=== PATIENT | female | born 1970 | race American Indian/Alaskan Native ===

== ENCOUNTER 2016-10-01 10:17 | Emergency (ER) | payer MEDICAID, OTHER ==
[2016-10-01 10:38] VITALS: BP 129/95
[2016-10-01] MEDS ORDERED: TORADOL IM ONE (13:15)
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
== END 2016-10-01 13:41 | disposition home or self-care (01) ==
LOC: ED 10:17
DX: M51.26 Other intervertebral disc displacement, lumbar region (principal); G89.29 Other chronic pain; F32.9 Major depressive disorder, single episode, unspecified; I10 Essential (primary) hypertension; F17.200 Nicotine dependence, unspecified, uncomplicated; Z96.643 Presence of artificial hip joint, bilateral; Z90.89 Acquired absence of other organs; Z86.2 Personal history of diseases of the blood and blood-forming organs and certain disorders involving the immune mechanism; V89.2XXA Person injured in unspecified motor-vehicle accident, traffic, initial encounter; Y93.89 Activity, other specified; Y99.8 Other external cause status; Y92.410 Unspecified street and highway as the place of occurrence of the external cause
CPT/HCPCS: 96372; 99282; J1885

== ENCOUNTER 2017-07-03 11:22 | Emergency (ER) | payer SELFPAY ==
[2017-07-03] MEDS ORDERED: NACL 0.9% 1000 ML 1,000 ML IV ONE (11:44)
[2017-07-03] MEDS ORDERED: KEPPRA 1,000 MG/NS 0.75% 100ML 1,000 MG/100 ML BAG IV ONE ×2 (11:44→11:46)
--- NOTE | 2017-07-03 12:44 | XRay Report ---
AP CHEST: HISTORY: Difficulty in breathing AP view of the chest demonstrates a normal mediastinal and cardiac contour with clear lungs and normal bony and soft tissue structures. IMPRESSION: Unremarkable AP chest.
[2017-07-03 12:47] LABS: Hematocrit 20.4 % (30.3-42.9); Hemoglobin 6.7 gm/dl (10.1-14.3); Mean Corpuscular HGB Conc 33 % (30-34); Mean Corpuscular Hemoglobin 32 pg (28-32); Mean Corpuscular Volume 97 fl (79-97); Platelet Count 357 K/mm3 (140-440); Red Cell Distribution Width 14.4 % (13.2-15.2); White Blood Count 19.9 K/mm3 (4.5-11.0)
[2017-07-03 12:59] LABS: INR 1.01 (0.87-1.13); Magnesium 1.8 mg/dL (1.7-2.3); Partial Thromboplastin Time 23.6 Sec. (24.2-36.6); Phosphorous 2.5 mg/dL (2.5-4.5)
[2017-07-03 13:03] LABS: Alanine Aminotransferase 56 units/L (7-56); Albumin 3.4 g/dL (3.9-5); Alkaline Phosphatase 137 units/L (35-129); Anion Gap 19 mmol/L; BUN/Creatinine Ratio 36; Blood Urea Nitrogen 25 mg/dL (7-17); Calcium 8.3 mg/dL (8.4-10.2); Carbon Dioxide 22 mmol/L (22-30); Chloride 92.9 mmol/L (98-107); Glucose 96 mg/dL (65-100); Potassium 3.9 mmol/L (3.6-5.0); Sodium 130 mmol/L (137-145); Total Protein 6.9 g/dL (6.3-8.2)
[2017-07-03 13:04] LABS: Bilirubin,Direct < 0.2 mg/dL (0-0.2)
[2017-07-03] MEDS ORDERED: NACL 0.9% 500 ML 500 ML IV ONE (13:17)
--- NOTE | 2017-07-03 13:19 | Cat Scan Report ---
CT HEAD WITHOUT CONTRAST INDICATION: Seizure. COMPARISON: None similar. FINDINGS: Noncontrast head CT demonstrates minimal ventricular and slight bifrontal sulcal prominence towards the vertex, though overall age-appropriate. Minimal, benign bilateral basal ganglia calcifications. No acute infarct, hemorrhage, mass effect or midline shift. No abnormal extra axial fluid collections. Normal posterior fossa with preserved basilar cisterns. Normal imaged eye globes, paranasal sinuses and mastoid air cells except for left mid to posterior ethmoid and left frontal sinus mucosal thickening. Normal calvarium and scalp. Few radiopaque dental material. CONCLUSION: No acute intracranial CT abnormality with slight atrophy and mild sinusitis, as described. Please correlate. Thank you for the opportunity to participate in this patient's care.
[2017-07-03 13:28] LABS: Anisocytosis 1+; Basophils % (Manual) 0 % (0.0-1.8); Blastocytes % (Manual) 0 %; Eosinophils % (Manual) 0 % (0.0-4.3); Polychromasia 1+
[2017-07-03 13:29] LABS: Diff Status Complete; Platelet Estimate Consistent w Auto
[2017-07-03 13:59] LABS: Iron 80 ug/dL (37-170); Total Iron Binding Capacity 251 mcg/dL (250-450)
[2017-07-03 14:05] LABS: Reticulocyte % 2.68 % (0.78-2.58)
--- NOTE | 2017-07-03 14:52 | Emergency Department Report ---
ED General Adult HPI - General Chief complaint: Altered Mental Status Stated complaint: FALL, FAINTING Time Seen by Provider: 07/03/17 11:43 Source: family Mode of arrival: Ambulatory Limitations: No Limitations - History of Present Illness Initial comments: According to the patient's family she had 2 episodes which they thought were consistent with seizures prior to arrival. The first episode involved an alteration of consciousness. The second one involved more shaking about her head and shoulders. They state that when they arrived in the emergency department she had noted brief episode that involved total body shaking. The patient arrives quite lethargic and apparently post ictal. However this started to resolve. She denied any chest or abdominal pain. Patient gives a strange history of being recently diagnosed in [facility] with lupus. She states she thinks that she's had lupus for several years. However, she has no primary care doctor. She states that she has never seen a supervisor advice. She is not currently on steroids. She also has a history of anemia. She's had no prior seizures. -: Sudden Consistency: now resolved (but arrives apparently postictal ) Improves with: none Worsens with: none Associated Symptoms: denies other symptoms Treatments Prior to Arrival: none - Related Data Previous Rx's Medication Instructions Recorded Last Taken Type Azithromycin [Zithromax Z-ACE] 250 mg PO DAILY #6 tablet 12/17/13 Unknown Rx Fluticasone Propionate [Flonase] 100 mcg NS BID #120 spray.susp 12/17/13 Unknown Rx HYDROcodone/APAP 5-325 [[place] 1 each PO Q6HR PRN #16 tablet 12/17/13 Unknown Rx 5-325 mg TAB] Prednisone [Prednisone 10 mg 10 mg PO .TAPER #1 tab.ds.pk 12/17/13 Unknown Rx (6-Day Pack, 21 Tabs)] Hyoscyamine Subl [Levsin Sl] 0.125 mg SL Q4HR PRN #10 tablet 05/22/14 Unknown Rx Ondansetron [Zofran Odt] 4 mg PO Q4H PRN #15 tab.rapdis 05/22/14 Unknown Rx tiZANidine [Zanaflex] 4 mg PO BID #14 tablet 10/01/16 Unknown Rx traMADol [Ultram 50 MG tab] 50 mg PO BID PRN #20 tablet 10/01/16 Unknown Rx Allergies Allergy/AdvReac Type Severity Reaction Status Date / Time No Known Allergies Allergy Verified 10/01/16 10:34 ED Review of Systems ROS: Stated complaint: FALL, FAINTING Other details as noted in HPI Constitutional: denies: chills, fever Eyes: denies: eye pain, eye discharge, vision change ENT: denies: ear pain, throat pain Respiratory: denies: cough, shortness of breath, wheezing Cardiovascular: denies: chest pain, palpitations Endocrine: no symptoms reported Gastrointestinal: denies: abdominal pain, nausea, diarrhea Genitourinary: denies: urgency, dysuria, discharge Musculoskeletal: denies: back pain, joint swelling, arthralgia Skin: denies: rash, lesions Neurological: other (seizures). denies: headache, weakness, paresthesias Psychiatric: denies: anxiety, depression Hematological/Lymphatic: denies: easy bleeding, easy bruising ED Past Medical Hx - Past Medical History Hx Hypertension: Yes Hx Psychiatric Treatment: Yes (DEPRESSION) Additional medical history: AVN Bilateral hips, herniated disc. ANEMIA - Surgical History Additional Surgical History: ENRICO hip replacement in 2012. TONSILLECTOMY 1979 - Social History Smoking Status: Current Every Day Smoker Substance Use Type: None - Medications Home Medications: Home Medications Medication Instructions Recorded Confirmed Last Taken Type Azithromycin [Zithromax Z-ACE] 250 mg PO DAILY #6 tablet 12/17/13 Unknown Rx Fluticasone Propionate [Flonase] 100 mcg NS BID #120 spray.susp 12/17/13 Unknown Rx HYDROcodone/APAP 5-325 [[place] 1 each PO Q6HR PRN #16 tablet 12/17/13 Unknown Rx 5-325 mg TAB] Prednisone [Prednisone 10 mg 10 mg PO .TAPER #1 tab.ds.pk 12/17/13 Unknown Rx (6-Day Pack, 21 Tabs)] Hyoscyamine Subl [Levsin Sl] 0.125 mg SL Q4HR PRN #10 tablet 05/22/14 Unknown Rx Ondansetron [Zofran Odt] 4 mg PO Q4H PRN #15 tab.rapdis 05/22/14 Unknown Rx tiZANidine [Zanaflex] 4 mg PO BID #14 tablet 10/01/16 Unknown Rx traMADol [Ultram 50 MG tab] 50 mg PO BID PRN #20 tablet 10/01/16 Unknown Rx ED Physical Exam - General Limitations: No Limitations General appearance: lethargic, other (pale) - Head Head exam: Present: atraumatic, normocephalic - Eye Eye exam: Present: normal appearance, PERRL, EOMI. Absent: scleral icterus - ENT ENT exam: Present: mucous membranes moist - Neck Neck exam: Present: normal inspection. Absent: tenderness, meningismus - Respiratory Respiratory exam: Present: normal lung sounds bilaterally. Absent: respiratory distress - Cardiovascular Cardiovascular Exam: Present: regular rate, normal rhythm. Absent: systolic murmur, diastolic murmur, rubs, gallop - GI/Abdominal GI/Abdominal exam: Present: soft, normal bowel sounds. Absent: distended, tenderness, guarding, rebound, rigid - Extremities Exam Extremities exam: Present: normal inspection - Back Exam Back exam: Present: normal inspection. Absent: CVA tenderness (R), CVA tenderness (L), muscle spasm, paraspinal tenderness, vertebral tenderness - Neurological Exam Neurological exam: Present: altered, CN II-XII intact. Absent: motor sensory deficit - Psychiatric Psychiatric exam: Present: normal affect, normal mood - Skin Skin exam: Present: warm, dry, intact, pallor. Absent: rash ED Course Vital Signs 07/03/17 07/03/17 11:45 12:11 Temperature 98.1 F Pulse Rate 79 Respiratory 10 L Rate Blood Pressure 126/74 O2 Sat by Pulse 100 Oximetry - Reevaluation(s) Reevaluation #1: The patient was given IV fluids. She is found to be substantially anemic. Transfusion is in progress. She was given a gram of Keppra for her apparent seizures. A CT of her head showed nothing acute. Chest x-ray showed no acute process. Patient is referred to the hospitalist service for further care and evaluation. Patient does have increased bands with a total white count of 19. I see that Dr. Feldman has begun antibiotic coverage. Still waiting for a urinalysis. 07/03/17 14:53 07/03/17 14:56 ED Medical Decision Making - Lab Data Result diagrams: 07/03/17 12:19 07/03/17 12:19 Laboratory Results - last 24 hr 07/03/17 07/03/17 07/03/17 11:45 12:19 12:19 WBC 19.9 H RBC 2.10 L Hgb 6.7 L Hct 20.4 L MCV 97 MCH 32 MCHC 33 RDW 14.4 Plt Count 357 Add Manual Diff Complete Total Counted 100 Seg Neuts % (Manual) 61.0 Band Neutrophils % 8.0 Lymphocytes % (Manual) 19.0 Reactive Lymphs % (Man) 0 Monocytes % (Manual) 10.0 H Eosinophils % (Manual) 0 Basophils % (Manual) 0 Metamyelocytes % 2.0 Myelocytes % 0 Promyelocytes % 0 Blast Cells % 0 Nucleated RBC % 3.0 H Seg Neutrophils # Man 12.1 H Band Neutrophils # 1.6 Lymphocytes # (Manual) 3.8 Abs React Lymphs (Man) 0.0 Monocytes # (Manual) 2.0 H Eosinophils # (Manual) 0.0 Basophils # (Manual) 0.0 Metamyelocytes # 0.4 Myelocytes # 0.0 Promyelocytes # 0.0 Blast Cells # 0.0 WBC Morphology Not Reportable Hypersegmented Neuts Not Reportable Hyposegmented Neuts Not Reportable Hypogranular Neuts Not Reportable Smudge Cells Not Reportable Toxic Granulation Not Reportable Toxic Vacuolation Not Reportable Dohle Bodies Not Reportable Pelger-Huet Anomaly Not Reportable Sage Rods Not Reportable Platelet Estimate Consistent w auto Clumped Platelets Not Reportable Plt Clumps, EDTA Not Reportable Large Platelets Not Reportable Giant Platelets Not Reportable Platelet Satelliting Not Reportable Plt Morphology Comment Not Reportable RBC Morphology Not Reportable Dimorphic RBCs Not Reportable Polychromasia 1+ Hypochromasia Not Reportable Poikilocytosis Not Reportable Anisocytosis 1+ Microcytosis Not Reportable Macrocytosis Not Reportable Spherocytes Not Reportable Pappenheimer Bodies Not Reportable Sickle Cells Not Reportable Target Cells Not Reportable Tear Drop Cells Not Reportable Ovalocytes Not Reportable Helmet Cells Not Reportable [place] Bodies Not Reportable [place] Rings Not Reportable [place] Cells Not Reportable Bite Cells Not Reportable Crenated Cell Not Reportable Elliptocytes Not Reportable Acanthocytes (Spur) Not Reportable Rouleaux Not Reportable Hemoglobin C Crystals Not Reportable Schistocytes Not Reportable Malaria parasites Not Reportable Percent Retic Dwayne Bodies Not Reportable Hem Pathologist Commnt No PT INR APTT Sodium 130 L Potassium 3.9 Chloride 92.9 L Carbon Dioxide 22 Anion Gap 19 BUN 25 H Creatinine 0.7 Estimated GFR > 60 BUN/Creatinine Ratio 36 Glucose 96 POC Glucose 117 H Calcium 8.3 L Phosphorus Magnesium Iron TIBC Total Bilirubin 0.20 Direct Bilirubin < 0.2 AST 23 ALT 56 Alkaline Phosphatase 137 H Ammonia NT-Pro-B Natriuret Pep Total Protein 6.9 Albumin 3.4 L Albumin/Globulin Ratio 1.0 Folate Salicylates Acetaminophen Plasma/Serum Alcohol Blood Type Antibody Screen Crossmatch 07/03/17 07/03/17 07/03/17 12:19 12:19 12:19 WBC RBC Hgb Hct MCV MCH MCHC RDW Plt Count Add Manual Diff Total Counted Seg Neuts % (Manual) Band Neutrophils % Lymphocytes % (Manual) Reactive Lymphs % (Man) Monocytes % (Manual) Eosinophils % (Manual) Basophils % (Manual) Metamyelocytes % Myelocytes % Promyelocytes % Blast Cells % Nucleated RBC % Seg Neutrophils # Man Band Neutrophils # Lymphocytes # (Manual) Abs React Lymphs (Man) Monocytes # (Manual) Eosinophils # (Manual) Basophils # (Manual) Metamyelocytes # Myelocytes # Promyelocytes # Blast Cells # WBC Morphology Hypersegmented Neuts Hyposegmented Neuts Hypogranular Neuts Smudge Cells Toxic Granulation Toxic Vacuolation Dohle Bodies Pelger-Huet Anomaly Sage Rods Platelet Estimate Clumped Platelets Plt Clumps, EDTA Large Platelets Giant Platelets Platelet Satelliting Plt Morphology Comment RBC Morphology Dimorphic RBCs Polychromasia Hypochromasia Poikilocytosis Anisocytosis Microcytosis Macrocytosis Spherocytes Pappenheimer Bodies Sickle Cells Target Cells Tear Drop Cells Ovalocytes Helmet Cells Arzate-[place]unde[place] Bodies [place] Rings [place] Cells Bite Cells Crenated Cell Elliptocytes Acanthocytes (Spur) Rouleaux Hemoglobin C Crystals Schistocytes Malaria parasites Percent Retic [place] Bodies Hem Pathologist Commnt PT INR APTT Sodium Potassium Chloride Carbon Dioxide Anion Gap BUN Creatinine Estimated GFR BUN/Creatinine Ratio Glucose POC Glucose Calcium Phosphorus Magnesium Iron TIBC Total Bilirubin Direct Bilirubin AST ALT Alkaline Phosphatase Ammonia NT-Pro-B Natriuret Pep Total Protein Albumin Albumin/Globulin Ratio Folate Salicylates 3.2 Acetaminophen < 15.0 Plasma/Serum Alcohol < 0.01 Blood Type Antibody Screen Crossmatch 07/03/17 07/03/17 07/03/17 12:19 12:19 12:19 WBC RBC Hgb Hct MCV MCH MCHC RDW Plt Count Add Manual Diff Total Counted Seg Neuts % (Manual) Band Neutrophils % Lymphocytes % (Manual) Reactive Lymphs % (Man) Monocytes % (Manual) Eosinophils % (Manual) Basophils % (Manual) Metamyelocytes % Myelocytes % Promyelocytes % Blast Cells % Nucleated RBC % Seg Neutrophils # Man Band Neutrophils # Lymphocytes # (Manual) Abs React Lymphs (Man) Monocytes # (Manual) Eosinophils # (Manual) Basophils # (Manual) Metamyelocytes # Myelocytes # Promyelocytes # Blast Cells # WBC Morphology Hypersegmented Neuts Hyposegmented Neuts Hypogranular Neuts Smudge Cells Toxic Granulation Toxic Vacuolation Dohle Bodies Pelger-Huet Anomaly Sage Rods Platelet Estimate Clumped Platelets Plt Clumps, EDTA Large Platelets Giant Platelets Platelet Satelliting Plt Morphology Comment RBC Morphology Dimorphic RBCs Polychromasia Hypochromasia Poikilocytosis Anisocytosis Microcytosis Macrocytosis Spherocytes Pappenheimer Bodies Sickle Cells Target Cells Tear Drop Cells Ovalocytes Helmet Cells Arzate-[place] Bodies [place] Rings [place] Cells Bite Cells Crenated Cell Elliptocytes Acanthocytes (Spur) Rouleaux Hemoglobin C Crystals Schistocytes Malaria parasites Percent Retic Dwayne Bodies Hem Pathologist Commnt PT 13.8 INR 1.01 APTT 23.6 L Sodium Potassium Chloride Carbon Dioxide Anion Gap BUN Creatinine Estimated GFR BUN/Creatinine Ratio Glucose POC Glucose Calcium Phosphorus 2.50 Magnesium 1.80 Iron TIBC Total Bilirubin Direct Bilirubin AST ALT Alkaline Phosphatase Ammonia 22.0 L NT-Pro-B Natriuret Pep 736.2 H Total Protein Albumin Albumin/Globulin Ratio Folate Salicylates Acetaminophen Plasma/Serum Alcohol Blood Type Antibody Screen Crossmatch 07/03/17 07/03/17 07/03/17 12:19 12:19 12:19 WBC RBC Hgb Hct MCV MCH MCHC RDW Plt Count Add Manual Diff Total Counted Seg Neuts % (Manual) Band Neutrophils % Lymphocytes % (Manual) Reactive Lymphs % (Man) Monocytes % (Manual) Eosinophils % (Manual) Basophils % (Manual) Metamyelocytes % Myelocytes % Promyelocytes % Blast Cells % Nucleated RBC % Seg Neutrophils # Man Band Neutrophils # Lymphocytes # (Manual) Abs React Lymphs (Man) Monocytes # (Manual) Eosinophils # (Manual) Basophils # (Manual) Metamyelocytes # Myelocytes # Promyelocytes # Blast Cells # WBC Morphology Hypersegmented Neuts Hyposegmented Neuts Hypogranular Neuts Smudge Cells Toxic Granulation Toxic Vacuolation Dohle Bodies Pelger-Huet Anomaly Sage Rods Platelet Estimate Clumped Platelets Plt Clumps, EDTA Large Platelets Giant Platelets Platelet Satelliting Plt Morphology Comment RBC Morphology Dimorphic RBCs Polychromasia Hypochromasia Poikilocytosis Anisocytosis Microcytosis Macrocytosis Spherocytes Pappenheimer Bodies Sickle Cells Target Cells Tear Drop Cells Ovalocytes Helmet Cells Arzate-[place]undee Bodies [place] Rings [place] Cells Bite Cells Crenated Cell Elliptocytes Acanthocytes (Spur) Rouleaux Hemoglobin C Crystals Schistocytes Malaria parasites Percent Retic 2.68 H Dwayne Bodies Hem Pathologist Commnt PT INR APTT Sodium Potassium Chloride Carbon Dioxide Anion Gap BUN Creatinine Estimated GFR BUN/Creatinine Ratio Glucose POC Glucose Calcium Phosphorus Magnesium Iron TIBC Total Bilirubin Direct Bilirubin AST ALT Alkaline Phosphatase Ammonia NT-Pro-B Natriuret Pep Total Protein Albumin Albumin/Globulin Ratio Folate 5.93 L Salicylates Acetaminophen Plasma/Serum Alcohol Blood Type O POSITIVE Antibody Screen Negative Crossmatch See Detail 07/03/17 12:19 WBC RBC Hgb Hct MCV MCH MCHC RDW Plt Count Add Manual Diff Total Counted Seg Neuts % (Manual) Band Neutrophils % Lymphocytes % (Manual) Reactive Lymphs % (Man) Monocytes % (Manual) Eosinophils % (Manual) Basophils % (Manual) Metamyelocytes % Myelocytes % Promyelocytes % Blast Cells % Nucleated RBC % Seg Neutrophils # Man Band Neutrophils # Lymphocytes # (Manual) Abs React Lymphs (Man) Monocytes # (Manual) Eosinophils # (Manual) Basophils # (Manual) Metamyelocytes # Myelocytes # Promyelocytes # Blast Cells # WBC Morphology Hypersegmented Neuts Hyposegmented Neuts Hypogranular Neuts Smudge Cells Toxic Granulation Toxic Vacuolation Dohle Bodies Pelger-Huet Anomaly Sage Rods Platelet Estimate Clumped Platelets Plt Clumps, EDTA Large Platelets Giant Platelets Platelet Satelliting Plt Morphology Comment RBC Morphology Dimorphic RBCs Polychromasia Hypochromasia Poikilocytosis Anisocytosis Microcytosis Macrocytosis Spherocytes Pappenheimer Bodies Sickle Cells Target Cells Tear Drop Cells Ovalocytes Helmet Cells Arzate-[place]unde[place] Bodies [place] Rings [place] Cells Bite Cells Crenated Cell Elliptocytes Acanthocytes (Spur) Rouleaux Hemoglobin C Crystals Schistocytes Malaria parasites Percent Retic Dwayne Bodies Hem Pathologist Commnt PT INR APTT Sodium Potassium Chloride Carbon Dioxide Anion Gap BUN Creatinine Estimated GFR BUN/Creatinine Ratio Glucose POC Glucose Calcium Phosphorus Magnesium Iron 80 TIBC 251 Total Bilirubin Direct Bilirubin AST ALT Alkaline Phosphatase Ammonia NT-Pro-B Natriuret Pep Total Protein Albumin Albumin/Globulin Ratio Folate Salicylates Acetaminophen Plasma/Serum Alcohol Blood Type Antibody Screen Crossmatch - EKG Data -: EKG Interpreted by Me EKG shows normal: sinus rhythm, axis, intervals, QRS complexes, ST-T waves Rate: tachycardia (borderline at 100) - EKG Data Interpretation: no acute changes - Radiology Data Radiology results: report reviewed Critical care attestation.: If time is entered above; I have spent that time in minutes in the direct care of this critically ill patient, excluding procedure time. ED Disposition Clinical Impression: Symptomatic anemia, Recurrent seizures, Prerenal azotemia, Hyponatremia, Increased bands Lupus Qualifiers: Lupus erythematosus form: unspecified Qualified Code(s): L93.0 - Discoid lupus erythematosus Leukocytosis Qualifiers: Leukocytosis type: bandemia Qualified Code(s): D72.825 - Bandemia Disposition: 09 OP ADMIT IP TO THIS HOSP Is pt being admited?: Yes Does the pt Need Aspirin: Yes Condition: Stable Referrals: PRIMARY CARE, [Primary Care Provider] - 3-5 Days Time of Disposition: 14:58
[2017-07-03] MEDS ORDERED: BABY ASPIRIN PO ONE (14:59)
[2017-07-03] MEDS ORDERED: NORCO 10/325 PO ONE (15:06)
[2017-07-03 15:41] LABS: Urine Drugs of Abuse Note Disclamer
[2017-07-03 15:50] LABS: Bilirubin,Urine NEG (Negative); Blood,Urine NEG (Negative); Ketones,Urine NEG (Negative); Leukocyte Esterase,Urine TR (Negative); Nitrite,Urine NEG (Negative); Protein,Urine <15 mg/dL mg/dL (Negative); RBC,Urine < 1.0 /HPF (0.0-6.0); Urobilinogen,Urine < 2.0 mg/dL (<2.0); WBC,Urine < 1.0 /HPF (0.0-6.0)
[2017-07-03] MEDS ORDERED: VANCOMYCIN/NS 1 GM/250 ML 1 GM/250 ML BAG IV ONE (16:00)
[2017-07-03] MEDS ORDERED: DILAUDID IV ONE (16:11)
[2017-07-03] MEDS ORDERED: DILAUDID ONE (16:11)
--- NOTE | 2017-07-03 16:40 | History and Physical Report ---
History of Present Illness Chief complaint: weakness History of present illness: 46 YO Female with SLE on oral steroids daily, Nicotine Dependence, Depression, Anemia chronic disease presents to ED for evaluation. Pt states that she had a seizure today. As per patient family, patient experienced a witnessed seizure today and was subsequently transported to [facility] for evaluation. PT seen and evaluated in ED and treated with Keppra loading. Pt underwent CT head which was negative for acute findings. Pt found to have leukocytosis suspected to chronic steroid use, but was treated with dose of empric abx pending results of urinalysis, and CXR. No source of infection found. Pt afebrile, medically optimzied, and back to usual state of health. Pt transfused with PRBC for anemia. Pt discharged home and instructed to f/u pcp 3-5 days, Rheumatology prn , and Neurology 1 wk. Past History Past Medical History: hypertension, other (SLE) Past Surgical History: No surgical history, Other (reviewed) Social history: single, smoking. denies: alcohol abuse, prescription drug abuse , IV drug use Medications and Allergies Allergies Allergy/AdvReac Type Severity Reaction Status Date / Time No Known Allergies Allergy Verified 10/01/16 10:34 Home Medications Medication Instructions Recorded Confirmed Last Taken Type Acetaminophen/Codeine [Tylenol 1 tab PO Q12H PRN #10 tab 07/03/17 Unknown Rx /Codeine # 3 tab] Carvedilol [Coreg] 6.25 mg PO BID 07/03/17 07/03/17 07/02/17 History Hydroxyzine HCl 25 mg PO QID 07/03/17 07/03/17 07/02/17 History amLODIPine [Norvasc] 5 mg PO DAILY 07/03/17 07/03/17 07/02/17 History levETIRAcetam [Keppra TAB] 500 mg PO BID #30 tablet 07/03/17 Unknown Rx predniSONE [Deltasone] 40 mg PO BID 07/03/17 07/03/17 07/02/17 History Active Meds: Active Medications Sodium Chloride (Nacl 0.9% 1000 Ml) 1,000 mls @ 125 mls/hr IV ONCE ONE Stop: 07/03/17 19:43 Last Admin: 07/03/17 12:06 Dose: 125 mls/hr Vancomycin HCl (Vancomycin/Ns 1 Gm/250 Ml) 1 gm in 250 mls @ 167.007 mls/hr IV ONCE ONE PRN Reason: Protocol Stop: 07/03/17 17:29 Review of Systems Constitutional: chronic pain, no weight loss, no fever, no chills, no sweats Ears, nose, mouth and throat: no ear pain, no ear discharge, no tinnitis, no decreased hearing, no nose pain, no nasal congestion, no nasal discharge Breasts: no change in shape, no swelling, no mass Cardiovascular: no chest pain, no orthopnea, no palpitations, no rapid/ irregular heart beat, no edema, no syncope Respiratory: no cough, no cough with sputum, no excessive sputum, no hemoptysis , no shortness of breath, no dyspnea on exertion Gastrointestinal: no abdominal pain, no nausea, no vomiting, no diarrhea, no constipation Genitourinary Female: no pelvic pain, no flank pain Rectal: no pain, no incontinence, no bleeding Musculoskeletal: no neck stiffness, no neck pain, no shooting arm pain, no arm numbness/tingling, no low back pain, no shooting leg pain, no leg numbness/ tingling, no redness of joints Integumentary: rash, no pruritis, no redness, no sores, no wounds Neurological: no transient paralysis, no paralysis, no weakness, no parathesias , no numbness, no tingling, no seizures Psychiatric: no anxiety, no memory loss, no change in sleep habits, no sleep disturbances, no insomnia, no change in appetite, no change in libido Endocrine: no cold intolerance, no heat intolerance, no polyphagia, no excessive thirst, no polydipsia, no polyuria Hematologic/Lymphatic: no easy bruising, no easy bleeding Allergic/Immunologic: no urticaria, no allergic rhinitis, no wheezing Exam - Constitutional Vitals: Temp Pulse Resp BP Pulse Ox 98 F 100 H 19 118/74 98 07/03/17 15:43 07/03/17 15:43 07/03/17 15:43 07/03/17 15:43 07/03/17 15:43 General appearance: Present: no acute distress, well-nourished - EENT Eyes: Present: PERRL ENT: hearing intact, clear oral mucosa - Neck Neck: Present: supple, normal ROM - Respiratory Respiratory effort: normal Respiratory: bilateral: CTA - Cardiovascular Heart Sounds: Present: S1 & S2. Absent: rub, click - Extremities Extremities: pulses symmetrical, No edema Peripheral Pulses: within normal limits - Abdominal General gastrointestinal: Present: soft, non-tender, non-distended, normal bowel sounds Female genitourinary: Present: normal - Integumentary Integumentary: Present: clear, warm, dry - Musculoskeletal Musculoskeletal: gait normal, strength equal bilaterally - Psychiatric Psychiatric: appropriate mood/affect, intact judgment & insight - Neurologic Neurologic: CNII-XII intact, moves all extremities Results - Labs CBC & Chem 7: 07/03/17 18:55 07/03/17 12:19 Labs: Abnormal lab results 07/03/17 07/03/17 07/03/17 Range/Units 11:45 12:19 12:19 WBC 19.9 H (4.5-11.0) K/mm3 RBC 2.10 L (3.65-5.03) M/mm3 Hgb 6.7 L (10.1-14.3) gm/dl Hct 20.4 L (30.3-42.9) % Monocytes % (Manual) 10.0 H (0.0-7.3) % Nucleated RBC % 3.0 H (0.0-0.9) % Seg Neutrophils # Man 12.1 H (1.8-7.7) K/mm3 Monocytes # (Manual) 2.0 H (0.0-0.8) K/mm3 Percent Retic (0.78-2.58) % APTT (24.2-36.6) Sec. Sodium 130 L (137-145) mmol/L Chloride 92.9 L (98-107) mmol/L BUN 25 H (7-17) mg/dL POC Glucose 117 H (70-105) Calcium 8.3 L (8.4-10.2) mg/dL Alkaline Phosphatase 137 H (35-129) units/L Ammonia (25-60) umol/L NT-Pro-B Natriuret Pep (0-450) pg/mL Albumin 3.4 L (3.9-5) g/dL Vitamin B12 (211-911) pg/mL Folate (7.3-26.0) ng/mL Crossmatch 07/03/17 07/03/17 07/03/17 Range/Units 12:19 12:19 12:19 WBC (4.5-11.0) K/mm3 RBC (3.65-5.03) M/mm3 Hgb (10.1-14.3) gm/dl Hct (30.3-42.9) % Monocytes % (Manual) (0.0-7.3) % Nucleated RBC % (0.0-0.9) % Seg Neutrophils # Man (1.8-7.7) K/mm3 Monocytes # (Manual) (0.0-0.8) K/mm3 Percent Retic (0.78-2.58) % APTT 23.6 L (24.2-36.6) Sec. Sodium (137-145) mmol/L Chloride (98-107) mmol/L BUN (7-17) mg/dL POC Glucose (70-105) Calcium (8.4-10.2) mg/dL Alkaline Phosphatase (35-129) units/L Ammonia 22.0 L (25-60) umol/L NT-Pro-B Natriuret Pep 736.2 H (0-450) pg/mL Albumin (3.9-5) g/dL Vitamin B12 (211-911) pg/mL Folate (7.3-26.0) ng/mL Crossmatch 07/03/17 07/03/17 07/03/17 Range/Units 12:19 12:19 12:19 WBC (4.5-11.0) K/mm3 RBC (3.65-5.03) M/mm3 Hgb (10.1-14.3) gm/dl Hct (30.3-42.9) % Monocytes % (Manual) (0.0-7.3) % Nucleated RBC % (0.0-0.9) % Seg Neutrophils # Man (1.8-7.7) K/mm3 Monocytes # (Manual) (0.0-0.8) K/mm3 Percent Retic 2.68 H (0.78-2.58) % APTT (24.2-36.6) Sec. Sodium (137-145) mmol/L Chloride (98-107) mmol/L BUN (7-17) mg/dL POC Glucose (70-105) Calcium (8.4-10.2) mg/dL Alkaline Phosphatase (35-129) units/L Ammonia (25-60) umol/L NT-Pro-B Natriuret Pep (0-450) pg/mL Albumin (3.9-5) g/dL Vitamin B12 > 2000 H (211-911) pg/mL Folate (7.3-26.0) ng/mL Crossmatch See Detail 07/03/17 Range/Units 12:19 WBC (4.5-11.0) K/mm3 RBC (3.65-5.03) M/mm3 Hgb (10.1-14.3) gm/dl Hct (30.3-42.9) % Monocytes % (Manual) (0.0-7.3) % Nucleated RBC % (0.0-0.9) % Seg Neutrophils # Man (1.8-7.7) K/mm3 Monocytes # (Manual) (0.0-0.8) K/mm3 Percent Retic (0.78-2.58) % APTT (24.2-36.6) Sec. Sodium (137-145) mmol/L Chloride (98-107) mmol/L BUN (7-17) mg/dL POC Glucose (70-105) Calcium (8.4-10.2) mg/dL Alkaline Phosphatase (35-129) units/L Ammonia (25-60) umol/L NT-Pro-B Natriuret Pep (0-450) pg/mL Albumin (3.9-5) g/dL Vitamin B12 (211-911) pg/mL Folate 5.93 L (7.3-26.0) ng/mL Crossmatch Assessment and Plan - Patient Problems (1) Lupus Current Visit: Yes Status: Acute Qualifiers: Lupus erythematosus form: unspecified Systemic lupus erythematosus type: S Systemic lupus erythematosus organ involvement: S Qualified Code(s): L93.0 - Discoid lupus erythematosus Plan to address problem: Resume home steroids, supportive care, outpatient rheumatology F/U (2) Symptomatic anemia Current Visit: Yes Status: Acute Plan to address problem: PRBC transfusion.
[2017-07-03 19:44] LABS: Hematocrit 28.3 % (30.3-42.9); Hemoglobin 9.4 gm/dl (10.1-14.3); Mean Corpuscular HGB Conc 33 % (30-34); Mean Corpuscular Hemoglobin 31 pg (28-32); Mean Corpuscular Volume 95 fl (79-97); Platelet Count 295 K/mm3 (140-440); Red Blood Count 2.99 M/mm3 (3.65-5.03); Red Cell Distribution Width 14.4 % (13.2-15.2)
[2017-07-03 20:07] VITALS: BP 114/76
[2017-07-03 20:47] LABS: Basophils % (Manual) 0 % (0.0-1.8); Blastocytes % (Manual) 0 %; Eosinophils % (Manual) 0 % (0.0-4.3)
[2017-07-03 20:51] LABS: Anisocytosis 1+; Elliptocytes 1+; Platelet Estimate Consistent w Auto; Polychromasia 1+
[2017-07-03 20:52] LABS: Diff Status Complete
== END 2017-07-03 20:33 | disposition admitted as inpatient to this hospital (09) ==
LOC: ED 11:22
DX: D64.9 Anemia, unspecified (principal); R79.89 Other specified abnormal findings of blood chemistry; E87.1 Hypo-osmolality and hyponatremia; L93.0 Discoid lupus erythematosus; D72.829 Elevated white blood cell count, unspecified; G40.909 Epilepsy, unspecified, not intractable, without status epilepticus; I10 Essential (primary) hypertension; F17.210 Nicotine dependence, cigarettes, uncomplicated
CPT/HCPCS: 36415; 36430; 70450; 71010; 80048; 80074; 80307; 81001; 82140; 82607; 82747; 82962; 83550; 83735; 83880; 84100; 85007; 85025; 85045; 85610; 85730; 86850; 86900; 86901; 86920; 93005; 93010; 96365; 96366; 96367; 96375; 99284; G0480; J1170; J1953; J3370; J7030; P9016; 80320

== ENCOUNTER 2018-12-22 10:58 | Emergency (ER) | payer MEDICAID ==
--- NOTE | 2018-12-22 11:45 | Emergency Department Report ---
Chief Complaint: Back Pain/Injury Stated Complaint: LEG/BACK PAIN/HBP Time Seen by Provider: 12/22/18 11:42 - HPI History of Present Illness: pt presents with lower back pain that began yesterday morning hx of chronic back pain no fall, injury, or trauma no bowel/bladder incontinence hx of neuropathy in the legs hx of avascular necrosis, BL hip replacement orthopedic Dr. Sanchez no longer having menstrual cycles hx of HTN, takes carvedilol and amlodipine, did not take her amlodipine MSE screening note: Focused history performed Due to findings the following was ordered: XR lumbar spine ED Disposition for MSE Condition: Stable
--- NOTE | 2018-12-22 13:27 | XRay Report ---
LUMBOSACRAL SPINE, 3 VIEWS: History: Back pain Findings: The vertebral bodies, disk spaces and posterior elements are intact. No compression deformity or malalignment. The SI joints are symmetric and unremarkable. There are focal soft tissue calcifications posterior to the L5 vertebral body and sacrum which are of uncertain significance. Impression: Lumbar spine within normal limits.
--- NOTE | 2018-12-22 16:01 | Emergency Department Report ---
ED Back Pain/Injury HPI - General Chief Complaint: Back Pain/Injury Stated Complaint: LEG/BACK PAIN/HBP Time Seen by Provider: 12/22/18 11:42 Source: patient Limitations: No Limitations - History of Present Illness Initial Comments: This is a 48-year-old -[place] female presents with low back pain that is radiating down bilateral lower extremity since yesterday. Patient states pain is so severe she was unable to sleep last night. She reports pain as 10 out of 10 on pain scale sharp in intensity. States pain is worse on the left lower side. She is currently taken Tylenol with no improvement of symptoms. Patient states she called her primary care provider Antwan he told her to follow- up in the emergency room. Past medical history of hypertension, rheumatoid a rthritis, GERD, depression, and lupus. MD Complaint: back pain Onset/Timin -: days(s) Similar Symptoms Previously: No Place: home Radiation: left leg, right leg Severity: severe Severity scale (0 -10): 10 Quality: burning, sharp Consistency: constant Improves With: none Worsens With: sitting upright, walking Context: unknown Associated Symptoms: denies: numbness, difficulty urinating, incontinence, fever/chills Treatments Prior to Arrival: ASA - Related Data Home Medications Medication Instructions Recorded Confirmed Last Taken Carvedilol [Coreg] 6.25 mg PO BID 07/03/17 03/28/18 07/02/17 amLODIPine [Norvasc] 5 mg PO DAILY 07/03/17 03/28/18 07/02/17 Previous Rx's Medication Instructions Recorded Last Taken Type Gabapentin [Neurontin] 300 mg PO Q6H #60 capsule 02/01/18 Unknown Rx Famotidine [Pepcid] 10 mg PO BID #60 tablet 03/29/18 Unknown Rx methOCARBAMOL [Robaxin TAB] 500 mg PO BID PRN #12 tab 12/22/18 Unknown Rx traMADol [Ultram 50 MG tab] 50 mg PO Q6HR PRN #12 tablet 12/22/18 Unknown Rx Allergies Allergy/AdvReac Type Severity Reaction Status Date / Time losartan Allergy Hives Verified 12/22/18 11:00 ED Review of Systems ROS: Stated complaint: LEG/BACK PAIN/HBP Other details as noted in HPI Constitutional: denies: chills, fever Respiratory: denies: cough, shortness of breath, wheezing Cardiovascular: denies: chest pain, palpitations Gastrointestinal: denies: abdominal pain, nausea, diarrhea Musculoskeletal: back pain (low back pain radiating down BLE). denies: joint swelling, arthralgia Skin: denies: rash, lesions Neurological: denies: headache, weakness, paresthesias Psychiatric: denies: anxiety, depression ED Past Medical Hx - Past Medical History AVN Bilateral hips, herniated disc. ANEMIA. lupus. chonic pain Family history: hypertension ED Back Pain Physical Exam - Exam General: Vital signs noted. No distress. Alert and acting appropriately. Back/Abdomen: Yes Sacroiliac Tenderness, Yes Straight Leg Raise Pain (left), No Abdominal Tenderness, No Perithoracic Tenderness, No Perilumbar Tenderness, No Flank Tenderness Neuro: Yes Normal Sensation, Yes Normal DTR's, Yes Normal Gait, No Motor Weakness ED Course Vital Signs 12/22/18 11:43 Temperature 98 F Pulse Rate 96 H Respiratory 18 Rate Blood Pressure 178/108 O2 Sat by Pulse 99 Oximetry Ed Back Pain Tests - Tests Tests: Normal ED Medical Decision Making - Radiology Data Radiology results: report reviewed LUMBOSACRAL SPINE, 3 VIEWS: History: Back pain Findings: The vertebral bodies, disk spaces and posterior elements are intact. No compression deformity or malalignment. The SI joints are symmetric and unremarkable. There are focal soft tissue calcifications posterior to the L5 vertebral body and sacrum which are of uncertain significance. Impression: Lumbar spine within normal limits. - Medical Decision Making Patient was examined by me. Past medical history of hypertension, rheumatoid arthritis, GERD, depression, and lupus. Blood pressure elevated on arrival and patient is in no acute distress. Obtained a x-ray of L-spine. X-ray dictated by radiologist and no acute findings. Patient informed of results. Positive straight leg test on left with lumbosacral tenderness. Given amlodipine and Harrah while in ER. Patient is asymptomatic hypertension. Reports refills at pharmacy for norvasc, pending pickup. Low back pain with sciatica. Start Robaxin and tramadol. Plan discussed with patient to discharge home and treat outpatient. She agree with ER plan. Patient discharged home in stable condition. Follow up with PCP in 2-3 days. Critical care attestation.: If time is entered above; I have spent that time in minutes in the direct care of this critically ill patient, excluding procedure time. ED Disposition Clinical Impression: Sciatica of left side, Asymptomatic hypertension Low back pain Qualifiers: Chronicity: acute Back pain laterality: bilateral Sciatica presence: with sciatica Sciatica laterality: bilateral sciatica Qualified Code(s): M54.42 - Lumbago with sciatica, left side Disposition: TO HOME OR SELFCARE Is pt being admited?: No Does the pt Need Aspirin: No Condition: Stable Instructions: Sciatica (ED), Lumbar Radiculopathy (ED), Hypertension (ED) Additional Instructions: Take tramadol pain medication every 6-8 hours as needed for pain. Would try than operating heavy machinery while taking Robaxin because it may cause drowsiness. 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 Prescriptions: methOCARBAMOL [Robaxin TAB] 500 mg PO BID PRN #12 tab PRN Reason: Muscle Spasm traMADol [Ultram 50 MG tab] 50 mg PO Q6HR PRN #12 tablet PRN Reason: Pain Referrals: KAREN PARNELL MD [Primary Care Provider] - 3-5 Days [facility], [facility] [Provider Group] - 3-5 Days Time of Disposition: 16:04
[2018-12-22] MEDS ORDERED: NORVASC PO ONE (16:04)
[2018-12-22] MEDS ORDERED: NORCO 5/325 PO ONE (16:04)
[2018-12-22 16:14] VITALS: BP 180/114
== END 2018-12-22 16:37 | disposition home or self-care (01) ==
LOC: ED 10:58
DX: M54.42 Lumbago with sciatica, left side (principal); I10 Essential (primary) hypertension; Z88.8 Allergy status to other drugs, medicaments and biological substances
CPT/HCPCS: 72100; 99283

== ENCOUNTER 2019-03-12 11:46 | Emergency (ER) | payer MEDICARE ==
[2019-03-12 12:30] VITALS: BP 184/11
--- NOTE | 2019-03-12 12:37 | Event Note ---
ED Screening Note ED Screening Note: pt presents with left ankle pain that began this morning pt walks with a walker was walking out to her car and tripped and had an inversion injury of her left ankle states also has right eye erythema and edema that began yesterday with crusting has a PMHx of HTN did not take her medication today This initial assessment/diagnostic orders/clinical plan/treatment(s) is/are subject to change based on patients health status, clinical progression and re- assessment by fellow clinical providers in the ED. Further treatment and workup at subsequent clinical providers discretion. Patient/guardian urged not to elope from the ED as their condition may be serious if not clinically assessed and managed. Initial orders include: XR left ankle
--- NOTE | 2019-03-12 13:29 | XRay Report ---
LEFT ANKLE, 3 VIEWS INDICATION: Left ankle injury, pain for one day. COMPARISON: None. IMPRESSION: Osteopenia is evident. No evidence for fracture, dislocation or bone lesion. Moderate di ffuse soft tissue swelling or edema is identified. Signer Name: Jose Gambino Jr, MD Signed: 03/12/2019 1:24 PM Workstation Name: [id number]
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
[2019-03-12] MEDS ORDERED: TORADOL IM ONE (13:57)
== END 2019-03-12 15:14 | disposition home or self-care (01) ==
LOC: ED 11:46
DX: S93.402A Sprain of unspecified ligament of left ankle, initial encounter (principal); H10.9 Unspecified conjunctivitis; I10 Essential (primary) hypertension; K21.9 Gastro-esophageal reflux disease without esophagitis; M19.90 Unspecified osteoarthritis, unspecified site; F32.9 Major depressive disorder, single episode, unspecified; G62.9 Polyneuropathy, unspecified; G89.29 Other chronic pain; Z86.2 Personal history of diseases of the blood and blood-forming organs and certain disorders involving the immune mechanism; Z90.89 Acquired absence of other organs; Z96.643 Presence of artificial hip joint, bilateral; Z79.899 Other long term (current) drug therapy; Z88.6 Allergy status to analgesic agent; X50.1XXA Overexertion from prolonged static or awkward postures, initial encounter; Y93.89 Activity, other specified; Y92.89 Other specified places as the place of occurrence of the external cause; Y99.8 Other external cause status
CPT/HCPCS: 73610; 96372; 99283; J1885

== ENCOUNTER 2019-08-12 10:14 | Emergency (ER) | payer MEDICARE ==
[2019-08-12 10:27] VITALS: BP 165/110
[2019-08-12] MEDS ORDERED: IBUPROFEN 800 MG TAB PO ONE (11:14)
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
== END 2019-08-12 13:20 | disposition home or self-care (01) ==
LOC: ED 10:14
DX: S16.1XXA Strain of muscle, fascia and tendon at neck level, initial encounter (principal); M54.5 Low back pain; M25.512 Pain in left shoulder; I10 Essential (primary) hypertension; K21.9 Gastro-esophageal reflux disease without esophagitis; D64.9 Anemia, unspecified; F32.9 Major depressive disorder, single episode, unspecified; F17.200 Nicotine dependence, unspecified, uncomplicated; Z98.890 Other specified postprocedural states; Z88.8 Allergy status to other drugs, medicaments and biological substances; Z79.899 Other long term (current) drug therapy; Z90.89 Acquired absence of other organs; V49.49XA Driver injured in collision with other motor vehicles in traffic accident, initial encounter; Y93.89 Activity, other specified; Y92.410 Unspecified street and highway as the place of occurrence of the external cause; Y99.8 Other external cause status
CPT/HCPCS: 72040; 72100; 72170